=== PATIENT | female | born 1965 ===

== ENCOUNTER 2018-02-20 15:49 | Emergency (ER) | payer BC ==
--- NOTE | 2018-02-20 16:21 | UC ---
Hip/Pelvis Pain - HPI Summary HPI Summary: 52 yo female with right buttock pain x 2 months has been xrayed and they are reportedly normal has appt with sports medicine MD next week pain worse with sitting pain worse with stairs marked exacerbation of pain today when she ran through airport to [employer] plane - History Of Current Complaint Chief Complaint: UCLowerExtremity Stated Complaint: MUSCLE STRAIN Time Seen by Provider: 02/20/18 16:12 Hx Obtained From: Patient Hx Last Menstrual Period: [employer] Onset/Duration: Gradual Onset, Still Present Timing: Constant Severity Initially: Mild Severity Currently: Severe Pain Intensity: 8 Pain Scale Used: 0-10 Numeric Location: Discrete At: - see image, Radiates To: - see image Character Of Pain: Aching, Throbbing, Spasmodic Aggravating Factor(s): Movement Alleviating Factor(s): OTC Medications Associated Signs And Symptoms: Positive: Negative Female Torso: 1 - pain here 2 - radiation 3 - radiation - Allergies/Home Medications Allergies/Adverse Reactions: Allergies Allergy/AdvReac Type Severity Reaction Status Date / Time No Known Allergies Allergy Verified 02/20/18 16:09 Home Medications: Home Medications FLUoxetine* [PROzac*] 40 mg PO DAILY 02/20/18 [History Confirmed 02/20/18] Ibuprofen TAB* [Motrin TAB* 800 MG] 800 mg PO Q6H PRN 02/20/18 [History Confirmed 02/20/18] buPROPion SR TAB* [Wellbutrin SR TAB*] 100 mg PO DAILY 02/20/18 [History Confirmed 02/20/18] lamoTRIgine TAB(*) [LaMICtal TAB(*)] 100 mg PO BID 02/20/18 [History Confirmed 02/20/18] PMH/Surg Hx/FS Hx/Imm Hx Previously Healthy: Yes Psychological History: Anxiety, Depression - Surgical History Surgical History: Yes Surgery Procedure, Year, and Place: hysterectomy - Family History Known Family History: Positive: Hypertension - Social History Alcohol Use: Occasionally Substance Use Type: None Smoking Status (MU): Never Smoked Tobacco Review of Systems All Other Systems Reviewed And Are Negative: Yes Constitutional: Positive: Negative Skin: Positive: Negative Eyes: Positive: Negative ENT: Positive: Negative Respiratory: Positive: Negative Cardiovascular: Positive: Negative Gastrointestinal: Positive: Negative Genitourinary: Positive: Negative Motor: Positive: Negative Neurovascular: Positive: Negative Musculoskeletal: Positive: Myalgia Neurological: Positive: Negative Psychological: Positive: Negative Physical Exam Triage Information Reviewed: Yes Appearance: Well-Appearing, No Pain Distress, Well-Nourished Vital Signs: Initial Vital Signs Temp 98.5 F 02/20/18 16:03 Pulse 66 02/20/18 16:03 Resp 16 02/20/18 16:03 BP 142/98 02/20/18 16:03 Pulse Ox 99 02/20/18 16:03 Vital Signs Reviewed: Yes Eyes: Positive: Conjunctiva Clear ENT: Positive: Hearing grossly normal. Negative: Pharyngeal erythema, Nasal congestion, Nasal drainage, Trismus, Muffled voice, Hoarse voice Neck: Positive: Supple Respiratory: Positive: Lungs clear, Normal breath sounds, No respiratory distress Cardiovascular: Positive: RRR, No Murmur Abdomen Description: Positive: Nontender, No Organomegaly, Soft. Negative: Bruit, CVA Tenderness (R), CVA Tenderness (L), Distended Musculoskeletal: Positive: ROM Intact, No Edema, Other: - right hip FROM, no pain with int or ext rotation, greater troch not tender, no pain with compression of pelvis or rocking pelvis, (-) SLR Neurological: Positive: Alert, Muscle Tone Normal, Other: - normal knee jerk reflexes Psychological Exam: Normal Skin Exam: Normal Hip Injury Course/Dx - Differential Dx/Diagnosis Provider Diagnosis: Right buttock pain, Piriformis syndrome of right side Discharge - Sign-Out/Discharge Documenting (check all that apply): Patient Departure All imaging exams completed and their final reports reviewed: No Studies - Discharge Plan Condition: Stable Disposition: HOME Prescriptions: Carisoprodol [Soma] 350 mg PO QID PRN #16 tablet MDD 4 PRN Reason: Spasms - Muscle Patient Education Materials: Muscle Strain (ED) Referrals: No Primary Care Phys,NOPCP [Primary Care Provider] - Additional Instructions: continue ibuprofen see sports medicine MD as planned - Billing Disposition and Condition Condition: STABLE Disposition: Home
[2018-02-20] MEDS ORDERED: Triamcinolone Acetonide* 40 MG/ML 1 ML VIAL IM ONE (16:40)
== END 2018-02-20 17:05 | disposition home or self-care (01) ==
LOC: UCEAST 15:49
DX: M79.18 Myalgia, other site (principal); G57.01 Lesion of sciatic nerve, right lower limb; F41.8 Other specified anxiety disorders
CPT/HCPCS: 96372; 99202; G0463; J3301